=== PATIENT | male | born 2000 | race Caucasian/White ===

== ENCOUNTER 2020-09-09 09:34 | Emergency (ER) | payer BC ==
[~2020-09-09] VITALS: Ht 177.8 cm; Wt 77.3 kg
[2020-09-09 09:38] VITALS: BP 131/84
== END 2020-09-09 10:48 | disposition home or self-care (01) ==
LOC: ER 09:35
DX: U07.1 COVID-19 (principal); B34.9 Viral infection, unspecified; R50.9 Fever, unspecified; R09.89 Other specified symptoms and signs involving the circulatory and respiratory systems
CPT/HCPCS: 36415; 87635; 99283